=== PATIENT | female | born 1965 | race Caucasian/White ===

== ENCOUNTER → 2017-07-07 | Outpatient (CLI) | payer OTHER ==
[2017-07-08 06:27] LABS: C3 110 mg/dL (90-200); C4 25.7 mg/dL (15.0-55.0)
[2017-07-08 09:45] LABS: RNP/SM Ab IgG <0.2 AI (<1.0)
[2017-07-08 11:48] LABS: Antinuclear Antibody Screen Positive (Negative)
[2017-07-10 10:40] LABS: ANA Pattern Centromere
== END | disposition home or self-care (01) ==
LOC: LAB 10:37
PROVIDERS: Nurse Practitioner Family
DX: E78.2 Mixed hyperlipidemia (principal); R53.83 Other fatigue; N95.9 Unspecified menopausal and perimenopausal disorder
CPT/HCPCS: 83036; 86038; 86039; 86160; 86225; 86235

== ENCOUNTER → 2017-08-13 | Outpatient (CLI) | payer OTHER | LOC: LAB 15:45 | DX: R35.0 Frequency of micturition (principal) | CPT/HCPCS: 87077; 87086; 87186 ==

== ENCOUNTER → 2017-08-28 | Outpatient (CLI) | payer OTHER ==
[2017-08-31 15:57] LABS: Source, Urine Clean Catch
[2017-08-31 16:01] LABS: Bilirubin, Urine Neg (Neg); Blood, Urine Neg (Neg); Glucose Qualitative, Urine Neg (Neg); Ketones, Urine Neg (Neg); Leukocyte Esterase, Urine Neg (Neg); Nitrite, Urine Neg (Neg); Protein, Urine Neg (Neg); Specific Gravity, Urine 1.025 (1.003-1.022); Urobilinogen, Urine NORM (Normal)
[2017-08-31 19:13] LABS: Appearance, Urine Clear (Clear); Color, Urine Yellow (P-Yellow)
== END ==
LOC: LAB 15:55
PROVIDERS: Family Medicine
DX: R82.90 Unspecified abnormal findings in urine (principal)
CPT/HCPCS: 81003

== ENCOUNTER → 2018-02-04 | Outpatient (CLI) | payer OTHER ==
[2018-02-05 09:55] LABS: Candida species (DNA Probe) Negative (NEGATIVE); G. vaginalis (DNA Probe) Negative (NEGATIVE); T. vaginalis (DNA Probe) Negative (NEGATIVE)
[2018-02-09 20:11] LABS: CHLAMYDIA TRACHOMATIS, NAA Negative (Negative); NEISSERIA GONORRHOEAE, NAA Negative (Negative)
== END ==
LOC: LAB SHORT 16:09 → LAB 16:09
PROVIDERS: Nurse Practitioner Family
DX: N89.8 Other specified noninflammatory disorders of vagina (principal); R35.0 Frequency of micturition; R39.15 Urgency of urination
CPT/HCPCS: 87086; 87480; 87491; 87510; 87591; 87660

== ENCOUNTER → 2019-02-25 | Outpatient (CLI) | payer OTHER, BC ==
[2019-03-01 15:07] LABS: HPV 16 Negative (Negative); HPV 18 Negative (Negative); HPV OTHER HR TYPES Negative (Negative)
== END | disposition home or self-care (01) ==
LOC: LAB 13:29 → LAB SHORT 13:29
PROVIDERS: Nurse Practitioner Women's Health
DX: Z12.72 Encounter for screening for malignant neoplasm of vagina (principal); Z91.89 Other specified personal risk factors, not elsewhere classified
CPT/HCPCS: 87624; G0123

== ENCOUNTER → 2020-05-31 | Outpatient (CLI) | payer OTHER | LOC: LAB 07:22 | DX: N89.8 Other specified noninflammatory disorders of vagina (principal) | CPT/HCPCS: 87086 ==

== ENCOUNTER → 2020-05-31 | Outpatient (CLI) | payer OTHER ==
[2020-05-31 13:47] LABS: Candida species (DNA Probe) Negative (NEGATIVE); G. vaginalis (DNA Probe) Negative (NEGATIVE); T. vaginalis (DNA Probe) Negative (NEGATIVE)
== END | disposition home or self-care (01) ==
LOC: LAB 07:25
PROVIDERS: Student in an Organized Health Care Education/Training Program
DX: N89.8 Other specified noninflammatory disorders of vagina (principal)
CPT/HCPCS: 87480; 87510; 87660

== ENCOUNTER → 2020-07-11 | Outpatient (CLI) | payer OTHER ==
[2020-07-11 08:42] LABS: BASOPHILS ABSOLUTE AUTO 0.04 K/mm3 (0.00-0.23); BASOPHILS PERCENT AUTO 1 % (0-2); EOSINOPHILS ABSOLUTE AUTO 0.09 K/mm3 (0.00-0.68); EOSINOPHILS PERCENT AUTO 2 % (0-6); Hematocrit 39.5 % (33.0-51.0); Hemoglobin 13.2 g/dL (11.5-16.0); IMMATURE GRAN ABSOLUTE AUTO 0.01 K/mm3 (0.00-0.10); IMMATURE GRAN PERCENT AUTO 0 % (0-1); LYMPHOCYTES ABSOLUTE AUTO 0.97 K/mm3 (0.84-5.20); LYMPHOCYTES PERCENT AUTO 21 % (21-46); MONOCYTES PERCENT AUTO 9 % (4-13); Mean Corpuscular HGB 31.7 pg (26.0-34.0); Mean Corpuscular HGB Conc 33.4 g/dL (31.5-36.5); Mean Corpuscular Volume 95 fL (80-100); Mean Platelet Volume 10.4 fL (9.1-12.4); NEUTROPHILS ABSOLUTE AUTO 3.06 K/mm3 (1.96-9.15); NEUTROPHILS PERCENT AUTO 67 % (41-73); Platelet Count 198 K/mm3 (150-400); RDW Coefficient Variation 11.9 % (11.7-14.2); RDW Standard Deviation 40.6 fL (35.1-46.3); Red Blood Cell Count 4.16 M/mm3 (3.80-5.20); White Blood Cell Count 4.57 K/mm3 (4.00-11.30)
[2020-07-11 09:08] LABS: Alanine Aminotransfer (ALT/SGP 21 U/L (12-78); Albumin, Blood 4.1 g/dL (3.4-5.0); Albumin/Globulin Ratio 1.3 (0.8-1.8); Alk Phos 47 U/L (50-136); Anion Gap 5 mmol/L (6-16); Aspartate Aminotrans (AST/SGOT 12 U/L (12-37); Bilirubin, Direct 0.1 mg/dL (0.0-0.3); Bilirubin, Indirect 0.5 mg/dL (0.1-0.7); Bilirubin, Total 0.6 mg/dL (0.1-1.0); Blood Urea Nitrogen 12 mg/dL (8-24); Bun/Creatinine Ratio 17.2 (12.0-20.0); CO2, Blood 27 mmol/L (21-32); Calcium, Blood 9.1 mg/dL (8.5-10.1); Chloride, Blood 107 mmol/L (98-108); Globulin, Blood 3.2 g/dL (2.2-4.0); Glomerular Filtration Rate >60 (60-); Glucose, Blood 92 mg/dL (70-99); Magnesium, Blood 2.1 mg/dL (1.6-2.4); Phosphorus, Blood 3.5 mg/dL (2.5-4.9); Potassium, Blood 3.6 mmol/L (3.5-5.5); Sodium, Blood 139 mmol/L (136-145); Total Protein, Blood 7.3 g/dL (6.4-8.2)
== END ==
LOC: LAB SHORT 08:33 → LAB 08:33
PROVIDERS: Nurse Practitioner
DX: E86.0 Dehydration (principal)
CPT/HCPCS: 80053; 82248; 83735; 84100; 85025

== ENCOUNTER → 2021-07-29 | Outpatient (CLI) | payer OTHER ==
[2021-07-29 09:51] LABS: Source, Urine Clean Catch
[2021-07-29 11:01] LABS: Appearance, Urine Clear (Clear); Bilirubin, Urine Neg (Neg); Blood, Urine Neg (Neg); Color, Urine Yellow (P-Yellow); Glucose Qualitative, Urine Neg (Neg); Ketones, Urine Neg (Neg); Leukocyte Esterase, Urine Neg (Neg); Nitrite, Urine Neg (Neg); Protein, Urine Neg (Neg); Urobilinogen, Urine NORM (Normal)
== END | disposition home or self-care (01) ==
LOC: LAB 09:16 → LAB SHORT 09:16
PROVIDERS: Student in an Organized Health Care Education/Training Program
DX: R30.0 Dysuria (principal)
CPT/HCPCS: 81003

== ENCOUNTER → 2022-04-29 | Outpatient (CLI) | payer OTHER | END | disposition home or self-care (01) | DX: N89.8 Other specified noninflammatory disorders of vagina (principal) ==

== ENCOUNTER 2022-09-29 10:30 | Day surgery (SDC) | payer OTHER ==
[~2022-09-29] VITALS: Ht 162.6 cm; Wt 69.2 kg
[2022-09-29] MEDS ORDERED: CLIMARA1 EACH (10:43)
[2022-09-29] MEDS ORDERED: OMEPRAZOLE20 M1 (10:43)
[2022-09-29] MEDS ORDERED: SENNA LAXATIVE8.6 MG (10:43)
[2022-09-29] MEDS ORDERED: PRAM.125 (10:43)
[2022-09-29] MEDS ORDERED: ESZO1 (10:43)
[2022-09-29 12:30] VITALS: BP 104/67
== END 2022-09-29 12:25 | disposition home or self-care (01) ==
LOC: ORSCSDS 10:30
PROVIDERS: Internal Medicine Gastroenterology
PROC: 0DB58ZX Excision of Esophagus, Via Natural or Artificial Opening Endoscopic, Diagnostic (ICD-10-PCS; principal; 2022-09-29 15:30)
PROC: 0DB68ZX Excision of Stomach, Via Natural or Artificial Opening Endoscopic, Diagnostic (ICD-10-PCS; principal; 2022-09-29 15:30)
PROC: 0DB98ZX Excision of Duodenum, Via Natural or Artificial Opening Endoscopic, Diagnostic (ICD-10-PCS; principal; 2022-09-29 15:30)
DX: R13.10 Dysphagia, unspecified (principal); K21.9 Gastro-esophageal reflux disease without esophagitis; K29.70 Gastritis, unspecified, without bleeding; K44.9 Diaphragmatic hernia without obstruction or gangrene; E78.5 Hyperlipidemia, unspecified; K90.41 Non-celiac gluten sensitivity; Z79.899 Other long term (current) drug therapy
CPT/HCPCS: 88305; 88342; J0330; J0461; J2001; J2405; J2704; J7120; Q9968

== ENCOUNTER → 2023-01-26 | Outpatient (CLI) | payer OTHER ==
[~2023-01-26] MED LIST: CLIMARA1 EACH; ESZO1; OMEPRAZOLE20 M1; PRAM.125; SENNA LAXATIVE8.6 MG
[2023-01-26 16:36] LABS: Source, Urine Clean Catch
[2023-01-26 19:41] LABS: Appearance, Urine Turbid (Clear); Bilirubin, Urine Neg (Neg); Blood, Urine Neg (Neg); Color, Urine Yellow (P-Yellow); Glucose Qualitative, Urine Neg (Neg); Ketones, Urine Neg (Neg); Leukocyte Esterase, Urine Neg (Neg); Nitrite, Urine Neg (Neg); Protein, Urine Neg (Neg); Specific Gravity, Urine 1.025 (1.003-1.022); Urobilinogen, Urine NORM (Normal)
[2023-01-26 20:17] LABS: Amorphous Heavy (0-Heavy); Red Blood Cells, Urine 0-2 /hpf (0-2); Squamous Epithelial Cells Rare /hpf (Few); White Blood Cells, Urine 0-2 /hpf (0-5)
[2023-01-26 20:18] LABS: Bacteria Mod /hpf
== END ==
LOC: LAB SHORT 16:34 → LAB 16:34
PROVIDERS: Student in an Organized Health Care Education/Training Program
DX: N39.41 Urge incontinence (principal)
CPT/HCPCS: 81001; 87086

== ENCOUNTER → 2023-01-30 | Outpatient (CLI) | payer OTHER ==
[2023-01-30 11:18] LABS: Anion Gap 3 mmol/L (6-16); Blood Urea Nitrogen 13 mg/dL (8-24); Bun/Creatinine Ratio 15.5 (12.0-20.0); CHOL/HDL RATIO 5.9; CO2, Blood 28 mmol/L (21-32); Calcium, Blood 8.9 mg/dL (8.5-10.1); Chloride, Blood 111 mmol/L (98-108); Cholesterol 272 mg/dL (50-200); Creatinine, Blood 0.84 mg/dL (0.40-1.00); Glomerular Filtration Rate 82 (60-); Glucose, Blood 109 mg/dL (70-99); HDL Cholesterol 46 mg/dL (>39); LDL/HDL RATIO 4.3; Low Density Lipoprotein Chol 199 mg/dL (0-110); Potassium, Blood 4.1 mmol/L (3.5-5.5); Sodium, Blood 142 mmol/L (136-145); Triglycerides 135 mg/dL (30-160); Very Low Density Lipoprot Chol 27 mg/dL (6-32)
== END ==
LOC: LAB SHORT 09:06 → LAB 09:06
PROVIDERS: Student in an Organized Health Care Education/Training Program
DX: Z00.00 Encounter for general adult medical examination without abnormal findings (principal)
CPT/HCPCS: 80048; 80061; 83036; 86141